=== PATIENT | male | born 1960 | race Caucasian/White ===

== ENCOUNTER 2019-05-08 09:11 | Emergency (ER) | payer MEDICAID ==
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
[2019-05-08] MEDS ORDERED: Sodium Chloride 0.9% 1,000 ML IV SCH ×2 (09:45→13:00)
--- NOTE | 2019-05-08 10:21 | CT ---
Head wo Cont CLINICAL HISTORY: Confusion COMPARISON: None TECHNIQUE: Transverse scans were obtained from the base of the skull through the vertex without IV contrast on a multislice, multidetector CT scanner. Described dose FINDINGS: Patient has a moderate-sized area of encephalomalacia involving the right temporal lobe extending into the temporoparietal and parieto-occipital region. There is some vague low-attenuation extending into the posterior parietal white matter on the right. The there is mild ex vacuo dilatation of the right lateral ventricle. No hemorrhage is identified. Basal cisterns and sulci over the convexities and ventricles otherwise appear appropriate for age. IMPRESSION: Moderate-sized area of encephalomalacia in the right temporal, temporoparietal and parietal occipital region. This is fairly well-demarcated and is likely of remote chronology but there is a area of more ill-defined low-attenuation extending into the high right the posterior parietal white matter. Superimposed process or extension of infarct is not excluded. Because the patient has a history of colon carcinoma and there has been a recent neurologic change a pre and postcontrast MR brain should be performed
[2019-05-08] MEDS ORDERED: Insulin Regular, Human 100 Units/ML 3 ML Vial SUBCUT ONE (10:26)
[2019-05-08] MEDS ORDERED: Gadoteridol 279.3 MG/ML 20 ML SDV IV SCH (11:45)
--- NOTE | 2019-05-08 12:18 | MR ---
Brain w wo Cont CLINICAL HISTORY: Abnormal head CT confusion COMPARISON: Current CT brain TECHNIQUE: Multiple pulse sequences were obtained through the brain in the axial, coronal, and sagittal planes both pre-and post IV contrast infusion gadolinium-based contrast. All images were obtained on a 1.5 [place] unit. FINDINGS: Diffusion images show no abnormal signal. There is a large area of encephalomalacia involving much of the right temporal lobe extending into the temporoparietal and parieto-occipital region as described on prior CT. There is some mild ex vacuo dilatation of the right lateral ventricle. There is a small lacunar-type infarct in the lateral left basal ganglia. There is no hemorrhage, edema, or extraaxial collection. The basal cisterns and sulci over the convexities mildly prominent. Postcontrast images show no enhancing lesions.. IMPRESSION: Large area of encephalomalacia in the right the temporal lobe as well as the occipital parietal junction regions. This is likely from previous infarct of remote chronology Small lacunar-type infarct left basal ganglia No enhancing lesions
== END 2019-05-08 13:45 | disposition home or self-care (01) ==
LOC: JP.ED 09:11
DX: I63.9 Cerebral infarction, unspecified (principal); E11.65 Type 2 diabetes mellitus with hyperglycemia; Z79.4 Long term (current) use of insulin; Z79.82 Long term (current) use of aspirin; Z79.899 Other long term (current) drug therapy; Z88.0 Allergy status to penicillin
CPT/HCPCS: 36415; 70450; 70450-26; 70553; 70553-26; 80053; 80305-QW; 80307; 81001; 82962; 83605; 85025; 87040; 96360; 99285; 99285-25; A9579; J1815-GY; J7030